=== PATIENT | male | born 1980 | race Caucasian/White ===

== ENCOUNTER 2025-06-04 06:51 | Day surgery (SDC) | payer OTHER ==
[~2025-06-04] VITALS: Ht 190.5 cm; Wt 110.9 kg
[~2025-06-04 06:51] MED LIST: ACET1TAB55 PO; CELE1CAP4 PO; RED500CA PO; THERTAB52 PO
[2025-06-04] MEDS ORDERED: MIDAZOLAM INJ 2 MG/2 ML VIAL As Ordered ONE (07:53)
[2025-06-04] MEDS ORDERED: LIDOCAINE 2% 100 MG/5 ML SDV (FOR ANES.) As Ordered ONE (07:54)
[2025-06-04] MEDS ORDERED: KETAMINE HCL 200 MG/20 ML VIAL As Ordered ONE (07:59)
[2025-06-04 08:16] VITALS: TEMP 97.9
[2025-06-04 08:35] VITALS: BP 135/90; O2SAT 97
== END 2025-06-04 08:41 | disposition home or self-care (01) ==
LOC: M OPP 06:51
PROVIDERS: ATTEND Internal Medicine Gastroenterology
DX: Z12.11 Encounter for screening for malignant neoplasm of colon (principal); K64.0 First degree hemorrhoids; Z79.899 Other long term (current) drug therapy
CPT/HCPCS: 45378; J2250